=== PATIENT | female | born 1970 | race Caucasian/White ===

== ENCOUNTER 2016-12-28 00:38 | Emergency (ER) | payer BC, OTHER ==
[~2016-12-28] VITALS: Ht 154.9 cm; Wt 51.7 kg
[2016-12-28 00:42] VITALS: TEMP 36.7; Ht 154.9 cm; Wt 51.7 kg
[2016-12-28] MEDS ORDERED: XYLOCAINE 1%/SOD BICARB 20 ML VIAL INFIL ONE (00:48)
[2016-12-28] MEDS ORDERED: LIDOCAINE/EPINEPH/TETRACAINE 1 EA SYR ONE (00:57)
[2016-12-28] MEDS ORDERED: LIDOCAINE/EPINEPH/TETRACAINE 1 EA SYR EXT STA (01:05)
[2016-12-28] MEDS ORDERED: ACETAMINOPHEN 500 MG TAB PO STA (01:05)
--- NOTE | 2016-12-28 01:43 | EMERGENCY ROOM VISIT NOTE ---
History First contact with patient: 00:46 Chief Complaint: LACERATION/CUT (SUT/DERMABOND) Stated Complaint: CUT ABOVE R EYE Nursing Triage Summary: Patient ambulatory to triage, states "I tripped and fell, about 1.5 hours ago. I hit the right side of my head off of a wooden ironing board. I also hit my right great toe and ripped half of my toe nail off." Laceration about 1 1/4 inches in length noted to the right lateral eyebrow; bleeding controlled. No LOC with the head injury. History of Present Illness The patient is a 46 year old female who presents to the Emergency Room with complaints of right eyebrow laceration and right great toenail injury after she tripped off the step and fell into the ironing board just prior to arrival. Tetanus is current. Patient complains of a mild headache, 2 out of 10. Nothing makes it better or worse. Patient denies loss of conscious, facial pain , dental pain, neck pain, back pain, chest pain, dyspnea, abdominal pain, numbness, tingling or any other medical complaints. No alcohol or drug use tonight. Review of Systems See HPI for pertinent positives & negatives. A total of 10 systems reviewed and were otherwise negative. Past Medical/Surgical History None Social History Smoking Status: Never Smoker Smokeless Tobacco Use: No Alcohol Use: none Drug Use: none Marital Status: in relationship Housing Status: lives with significant other Current/Historical Medications No Active Prescriptions or Reported Meds Allergies Coded Allergies: Codeine (Verified Allergy, Intermediate, n/v, 12/28/16) Physical Exam Vital Signs Date Time Temp Pulse Resp B/P Pulse Ox O2 Delivery O2 Flow Rate FiO2 12/28/16 00:42 36.7 71 16 148/95 97 Room Air Physical Exam PHYSICAL EXAM: VITALS: Vitals are noted on the nurse's note and reviewed by myself. Vital signs stable. GENERAL: Pleasant female, in no acute distress, nondiaphoretic, well-developed well-nourished. SKIN: Right elbow with 3 cm laceration is gaping and appears clean with no deep structures visualized in the base of the wound The rest of the skin was without obvious lacerations or abrasions. Capillary reflex less than 2 seconds. HEAD: Normocephalic EARS: External auditory canals clear, tympanic membranes pearly terrazas without erythema or effusion bilaterally. No hemotympanums. No valerio sign. No mastoid tenderness. EYES: Pupils equal round and reactive to light and accommodation. Conjunctivae without injection, sclerae without icterus. Extraocular movements intact. NOSE: Patent, turbinates without inflammation or discharge. No sinus tenderness. No septal hematoma or bleeding. FACE: No facial bone tenderness. Full range of motion of the jaw without tenderness. Ethyl exam: No loose or chipped teeth MOUTH: Mucous membranes moist. Pharynx without erythema or exudate. Uvula midline. Airway patent. Tongue does not deviate. NECK: Supple without nuchal rigidity. Cervical spine is nontender. Full range of motion of the neck without tenderness. No JVD. HEART: Regular rate and rhythm without murmurs gallops or rubs. LUNGS: Clear to auscultation bilaterally without wheezes, rales or rhonchi. No dullness to percussion. No retractions or accessory muscle use. No chest wall tenderness. ABDOMEN: Positive bowel sounds x 4. Normal tympanic percussion. Soft, nontender, without masses or organomegaly. No guarding or rebound tenderness. MUSCULOSKELETAL: No tenderness of the thoracic or lumbar spine. Right great toe tender to palpation with part of the tail nail partially avulsed off to the distal aspect with bleeding controlled. Full range of motion without tenderness to palpation in all other extremities. Normal gait. Strength 5/5 throughout. Peripheral pulses 2+. NEURO: Patient was alert and oriented to person place and time. Normal sensation to light and sharp touch. Cerebellar function intact. No focal neurological deficits. Medical Decision & Procedures Medications Administered Medications (Trade) Dose Ordered Sig/[facility] Route Start Time Stop Time Status Last Admin Dose Admin Acetaminophen (Tylenol Tab) 1,000 mg NOW STAT PO 12/28/16 01:05 12/28/16 01:06 DC 12/28/16 01:20 1,000 MG Procedure Location: right eyebrow Total length: 3cm Complexity: simple Verbal consent was obtained after the risks and benefits were explained, including but not limited to bleeding, scarring, infection, pain, and bone/joint /nerve damage. At this time, the risks of the procedure are less than the risks of NOT performing the procedure. A time out was taken and the correct patient and site identified. The skin was prepped with betadine. The target area was anesthetized with LET. Copious irrigation was performed using NS. The skin was re-prepped with betadine and a sterile field set. The wound was explored for foreign bodies and none found. Examination revealed no injury to deep structures such as tendons, bone, or significant blood vessels. Debridement was not performed. The wound edges were approximated using 6, 6-0 simple interrupted nylon sutures. Hemostasis and excellent approximation was achieved. Antibacterial ointment and a sterile dressing applied. Detailed wound care instructions and signs and symptoms of infection reviewed with the pt. No complications and the patient tolerated the procedure well. ED Course Prior records/ancillary studies reviewed. Triage Nursing notes reviewed. Additional history obtained from family. The patient's history was concerning for traumatic head injury Differential diagnosis: Etiologies such as concussion, contusion, fracture, subdural hematoma, epidural hematoma, intraparenchymal hemorrhage, as well as other traumatic pathologies were entertained. Physical examination findings: As above. ER treatment provided: P.o. Tylenol Laceration repaired as above Wound care to partial nail avulsion to the right great toe by nursing On reassessment the patient felt better. Diagnostics interpreted by me: Imaging studies: To x-ray with no fracture, dislocation or effusion per my interpretation It appears the patient has a mild head injury with facial laceration and toenail injury. I discussed the risks and the benefits of CT scanning. Clinically the patient is doing well and does not appear to have a significant underlying injury. The pt felt comfortable with conservative observation with the understanding if the clinical picture change that imaging may be necessary at a later time. I gave my usual and customary discussion regarding this issue. Patient was counseled on laceration care and on nailbed and nail injury. She was advised to keep area dry and clean. She was advised to return to the ER immediately for headache, fevers, confusion, redness, drainage, worsening signs or symptoms or as needed. She is advised to follow-up family care in a few days. Tetanus is current per patient. By the evaluation outlined above emergent etiologies such as fracture, subdural hematoma, epidural hematoma, intraparenchymal hemorrhage, as well as others were deemed relatively unlikely. The pt informed about the findings as listed above. All questions were answered and pleased with the treatment. Return instructions were outlined and the patient was discharged in stable condition. Referral: The patient was referred back to their primary care physician for follow-up in 2 to 3 days for a recheck of the current condition. Medical Decision As above Impression Primary Impression: Head injury Additional Impressions: Facial laceration Avulsion of toenail of right foot Fall Departure Information Dispostion Home / Self-Care Condition GOOD Prescriptions No Active Prescriptions or Reported Meds Referrals Johnathan Membreno M.D. (PCP) Patient Instructions My [facility] Additional Instructions Keep wound clean and dry. Do not allow any crusting or dried blood to accumulate on sutures. If this occurs, use a 1:1 solution of hydrogen peroxide/ water on a Q-tip to clean the wound. Use an antibiotic ointment for 3-4 days, then let wound dry. Suture removal in 5-7 days. Return sooner for any signs of infection (increasing redness, swelling, drainage). Ice and elevate for swelling and pain. Keep covered when in sun until sutures removed then SPF 50 or higher for one year. Vitamin E oil if desired two weeks after suture removal for reduction of scar Read head injury handout and return for any symptoms. Tylenol 1000 mg as needed for pain (Maximum 3000 mg Tylenol in 24 hr period). Avoid alcohol and contact sports/activities for one week and follow up with family doctor prior to returning to these activities if still symptomatic. Ice and elevate head. If your symptoms persist more than a week then follow up with the concussion clinic. Call [phone]. Return to ER sooner for headache, fevers, confusion, worsening signs or symptoms or as needed. Antibiotic ointment and bandage to the areas until healed. Check your toenail frequently for signs and symptoms of infection. Follow up with family doctor or return for any signs of infection (increasing redness, swelling, drainage, or fever). Keep covered when in sun until fully healed then SPF 50 or higher until scar healed. Return to ER sooner for headache, fevers, confusion, signs of infection, worsening signs or symptoms or as needed. Problem Qualifiers Primary Impression: Head injury Encounter type: initial encounter Qualified Codes: S09.90XA - Unspecified injury of head, initial encounter Additional Impressions: Facial laceration Encounter type: initial encounter Qualified Codes: S01.81XA - Laceration without foreign body of other part of head, initial encounter Fall Encounter type: initial encounter Qualified Codes: W19.XXXA - Unspecified fall, initial encounter
[2016-12-28 01:46] VITALS: BP 133/86; PULSE 71; O2SAT 98
--- NOTE | 2016-12-28 08:21 | DIAGNOSTIC IMAGING REPORT ---
RIGHT FIRST TOE 3 VIEWS HISTORY: right great toe injury Right COMPARISON: None. FINDINGS: There is no fracture or dislocation. Mild soft tissue swelling within the distal toe. No radiopaque foreign bodies. IMPRESSION: No fractures. Electronically signed by: Sam Regalado M.D. 12/28/2016 8:20 AM Dictated Date/Time: 12/28/2016 8:19 AM
== END 2016-12-28 01:54 | disposition home or self-care (01) ==
LOC: C.EDB 00:39
DX: S09.90XA Unspecified injury of head, initial encounter (principal); S01.81XA Laceration without foreign body of other part of head, initial encounter; S91.201A Unspecified open wound of right great toe with damage to nail, initial encounter; W10.9XXA Fall (on) (from) unspecified stairs and steps, initial encounter; W22.09XA Striking against other stationary object, initial encounter

== ENCOUNTER 2017-01-03 15:18 | Emergency (ER) | payer BC ==
[~2017-01-03] VITALS: Ht 154.9 cm; Wt 51.7 kg
[2017-01-03 15:26] VITALS: PULSE 70; TEMP 36.8; O2SAT 99; Ht 154.9 cm; Wt 51.7 kg
--- NOTE | 2017-01-03 15:50 | EMERGENCY ROOM VISIT NOTE ---
ED Visit Note First contact with patient: 15:31 Chief complaint: Retained sutures right eyebrow. HPI: This 46-year-old white female presents to the ER for removal of retained sutures in the right eyebrow. The patient denies any fevers, chills, sweats, nausea, redness, streaking, purulent drainage, pain with palpation, or other signs of infection. They have been keeping the wound clean and protected as directed. Pain is rated as 0/10. Sutures have been in place for 6 days. No other complaints. Medical history, past surgical history, family history, social history, current medications, allergies, and tetanus status: All are unchanged from previous exam. Please see the chart from the initial wound repair visit. Physical exam Vitals: Afebrile. Reviewed and filed in patient's chart General: Well-developed, well-nourished, middle-aged white female, in no acute distress. She looks her stated age. Sitting on the bed, alert and oriented. No visible discomfort. Skin: Warm and dry with good turgor. No rashes or lesions. Sutures are in place in the right eyebrow. Wound edges are well approximated. No erythema, edema, ecchymosis, purulent drainage, or warmth. No significant discomfort with palpation. Area is nonfluctuant. Neurologic: Gross sensation is intact around the wound via soft touch. Capillary refill is intact and is equal to the surrounding tissue. Impression: Healing laceration right eyebrow Plan: Wound was cleansed with peroxide. Sutures were removed without event. Wound remained closed. No Steri-Strips were needed. Wound care precautions were reviewed. Watch for any signs of infection, or dehiscense. Return to the ER as needed. Tylenol as needed for any discomfort. Current/Historical Medications No Active Prescriptions or Reported Meds Allergies Coded Allergies: Codeine (Verified Allergy, Intermediate, n/v, 12/28/16) Vital Signs Date Time Temp Pulse Resp B/P (MAP) Pulse Ox O2 Delivery O2 Flow Rate FiO2 01/03/17 15:26 36.8 70 18 99 Room Air Departure Information Impression Primary Impression: Encounter for removal of sutures Dispostion Home / Self-Care Prescriptions No Active Prescriptions or Reported Meds Forms HOME CARE DOCUMENTATION FORM, TYLENOL USE, IMPORTANT VISIT INFORMATION Patient Instructions [facility] Additional Instructions Keep the area clean with soap and water Tylenol every 6 hours as needed for discomfort Apply sunblock to the area for the next 3-4 months to prevent darkening of the scar
== END 2017-01-03 15:45 | disposition home or self-care (01) ==
LOC: C.EDB 15:21 → C.EDD 15:45
DX: S01.111D Laceration without foreign body of right eyelid and periocular area, subsequent encounter (principal); X58.XXXD Exposure to other specified factors, subsequent encounter

== ENCOUNTER → 2017-04-09 | Outpatient (CLI) | payer BC ==
--- NOTE | 2017-04-09 12:34 | MAMMOGRAPHY REPORT ---
BILATERAL DIGITAL SCREENING MAMMOGRAM TOMOSYNTHESIS WITH CAD: 04/09/2017 TECHNIQUE: Breast tomosynthesis in addition to standard 2D mammography was performed. Current study was also evaluated with a Computer Aided Detection (CAD) system. COMPARISON: Comparison is made to exams dated: 04/03/2016 mammogram, 10/14/2015 mammogram, 10/14/2015 ul trasound biopsy, 04/10/2015 ultrasound, 03/29/2015 mammogram, and 10/09/2015 mammogram - [facility]. BREAST COMPOSITION: The tissue of both breasts is heterogeneously dense, which may obscure small mas ses. FINDINGS: No suspicious masses, calcifications, or areas of architectural distortion are noted in ei ther breast. There has been no significant interval change compared to prior exams. Small mass with associated biopsy marker clip in the left superior breast is stable compared to prior exams. IMPRESSION: ACR BI-RADS CATEGORY 2: BENIGN There is no mammographic evidence of malignancy. A 1 year screening mammogram is recommended. The pa tient will receive written notification of the results. Approximately 10% of breast cancers are not detected with mammography. A negative mammographic report should not delay biopsy if a clinically suggestive mass is present. Manda Mercedes M.D. ah/:04/09/2017 07:52:51 Clinical Informaticist: Dipika PEÑA(Josh)(M), [facility] letter sent: Normal 1/2 BI-RADS Code: ACR BI-RADS Category 2: Benign
== END | disposition home or self-care (01) ==
LOC: C.MAMM 07:37
PROVIDERS: ATTEND Family Medicine
DX: Z12.31 Encounter for screening mammogram for malignant neoplasm of breast (principal)

== ENCOUNTER → 2017-04-23 | Outpatient (CLI) | payer BC ==
[2017-04-23 13:00] LABS: BASO % 0.5 %; BASO ABS # 0.04 K/uL (0-0.2); COMPLETE YES; EOS % 1.6 %; HEMATOCRIT 42.2 % (37-47); IG% 0.1 %; LYMPH % 16.8 %; LYMPH ABS # 1.24 K/uL (1.2-3.4); MEAN CELL VOLUME 93.6 fL (80-100); MEAN CORPUSCULAR HEMOGLOBIN 32.2 pg (25-34); MEAN CORPUSCULAR HGB CONC 34.4 g/dl (32-36); MEAN PLATELET VOLUME 9.8 fL (7.4-10.4); MONO % 6.5 %; NEUT % 74.5 %; PLATELET COUNT 218 K/uL (130-400); RED BLOOD COUNT 4.51 M/uL (4.2-5.4); WHITE BLOOD COUNT 7.36 K/uL (4.8-10.8)
[2017-04-23 13:17] LABS: MANUAL MICROSCOPIC REQUIRED? NO; REVIEW REQ? NO; URINE APPEARANCE CLOUDY (CLEAR); URINE BILIRUBIN NEG (NEG); URINE COLOR YELLOW; URINE EPITHELIAL CELL AUTO >30 /lpf (0-5); URINE NITRITE NEG (NEG); UROBILINOGEN NEG (NEG); ZZUR CULT IF INDIC CLEAN CATCH YES
[2017-04-23 13:53] LABS: ALT/SGPT 14 U/L (12-78); AST/SGOT 17 U/L (15-37); BLOOD UREA NITROGEN 12 mg/dl (7-18); BUN/CREATININE RATIO 17.1 (10-20); CALCIUM 8.9 mg/dl (8.5-10.1); CARBON DIOXIDE 27 mmol/L (21-32); CHLORIDE 107 mmol/L (98-107); CREATININE 0.68 mg/dl (0.60-1.20); GLUCOSE 87 mg/dl (70-99); POTASSIUM 3.9 mmol/L (3.5-5.1); SODIUM 140 mmol/L (136-145)
== END | disposition home or self-care (01) ==
LOC: C.LABPVFM 09:54
PROVIDERS: ATTEND Family Medicine Adult Medicine
DX: R10.32 Left lower quadrant pain (principal)

== ENCOUNTER → 2017-06-30 | Outpatient (CLI) | payer BC | END | disposition home or self-care (01) | LOC: C.LABPVFM 11:59 | PROVIDERS: ATTEND Family Medicine Adult Medicine | DX: R30.0 Dysuria (principal); R31.29 Other microscopic hematuria ==

== ENCOUNTER → 2017-10-21 | Outpatient (CLI) | payer BC ==
[2017-10-21 17:18] LABS: BASO % 0.8 %; BASO ABS # 0.06 K/uL (0-0.2); EOS % 3.6 %; EOS ABS # 0.26 K/uL (0-0.5); HEMATOCRIT 43.8 % (37-47); HEMOGLOBIN 15.1 g/dL (12.0-16.0); IG# 0.01 K/uL (0.00-0.02); LYMPH % 27.6 %; LYMPH ABS # 2.01 K/uL (1.2-3.4); MEAN CELL VOLUME 92.8 fL (80-100); MEAN CORPUSCULAR HGB CONC 34.5 g/dl (32-36); MEAN PLATELET VOLUME 10.1 fL (7.4-10.4); MONO % 8.2 %; NEUT % 59.7 %; NEUT ABS # 4.34 K/uL (1.4-6.5); PLATELET COUNT 241 K/uL (130-400); RED CELL DISTRIBUTION WIDTH CV 12.8 % (11.5-14.5); WHITE BLOOD COUNT 7.28 K/uL (4.8-10.8)
[2017-10-21 17:30] LABS: ALBUMIN 4.3 gm/dl (3.4-5.0); ALT/SGPT 16 U/L (12-78); AST/SGOT 14 U/L (15-37); BLOOD UREA NITROGEN 16 mg/dl (7-18); CALCIUM 9.2 mg/dl (8.5-10.1); CARBON DIOXIDE 29 mmol/L (21-32); CREATININE 0.87 mg/dl (0.60-1.20); GLUCOSE 99 mg/dl (70-99); LIPASE 240 U/L (73-393); POTASSIUM 3.9 mmol/L (3.5-5.1); SODIUM 138 mmol/L (136-145)
[2017-10-21 17:33] LABS: ALKALINE PHOSPHATASE 56 U/L (45-117); TOTAL PROTEIN 7.6 gm/dl (6.4-8.2)
== END | disposition home or self-care (01) ==
LOC: C.LABPVFM 15:44
PROVIDERS: ATTEND Family Medicine
DX: R10.32 Left lower quadrant pain (principal)

== ENCOUNTER → 2017-10-27 | Outpatient (CLI) | payer BC ==
--- NOTE | 2017-10-27 11:35 | DIAGNOSTIC IMAGING REPORT ---
ULTRASOUND RIGHT UPPER QUADRANT ABDOMEN CLINICAL HISTORY: Generalized abdominal pain. COMPARISON STUDY: Abdominal CT dated 03/17/2016. TECHNIQUE: Real-time, grayscale, and color flow sonography of the right upper quadrant of the abdomen was performed. Images are reviewed in the transverse and longitudinal planes. FINDINGS: Liver: The liver is normal in size and echotexture. There is no intrahepatic biliary ductal dilatation. The main portal vein is patent. Gallbladder: A 2 mm gallbladder polyp is incidentally noted. No shadowing gallstones are seen. There is no gallbladder wall thickening or pericholecystic fluid. A sonographic Smith's sign is reportedly absent. The common bile duct measures up to 0.3 cm in diameter. Pancreas: Visualized portions of the pancreatic head and body are normal in appearance. Right kidney: Survey images of the right kidney demonstrate normal size and echotexture. There is no hydronephrosis. Ascites: None. Left lower quadrant: No sonographic abnormality is identified in the left abdomen at the indicated site of interest. IMPRESSION: 1. No acute sonographic abnormality is identified in the right upper quadrant. No gallstones are seen. 2. No sonographic abnormality is seen at the site of interest in the left abdomen. Electronically signed by: Carter Martel M.D. 10/27/2017 11:34 AM Dictated Date/Time: 10/27/2017 11:32 AM
== END | disposition home or self-care (01) ==
LOC: C.ULTRBC 10:38
PROVIDERS: ATTEND Family Medicine
DX: R10.32 Left lower quadrant pain (principal)

== ENCOUNTER → 2017-11-02 | Outpatient (CLI) | payer BC ==
[~2017-11-02] MED LIST: OPTIRAY 320 IV PRN
--- NOTE | 2017-11-02 07:37 | DIAGNOSTIC IMAGING REPORT ---
ABD/PELVIS IV CONTRAST ONLY CLINICAL HISTORY: 47 years-old Female presenting with R10.32 Abdominal pain, left lower quadrant. TECHNIQUE: Multidetector CT of the abdomen and pelvis was performed after the administration of intravenous contrast. IV contrast: 93 mL of Optiray 320. A dose lowering technique was used consistent with the principles of ALARA (as low as reasonably achievable). COMPARISON: 03/17/2016. CT DOSE (mGy.cm): The estimated cumulative dose is 263.51 mGy.cm. FINDINGS: [employer] topogram: Unremarkable. Lung bases: Lungs and pleural spaces clear. Normal heart size. No pericardial or pleural effusion. Liver: Normal morphology. No liver lesion. Patent hepatic vasculature. Biliary: No intrahepatic or extrahepatic biliary ductal dilatation. Normal gallbladder. Pancreas: Normal. Spleen: Normal. Adrenal glands: Normal. Kidneys and ureters: Subcentimeter hypodensity in the left kidney too small to characterize but likely simple cyst. No hydronephrosis. Punctate nonobstructing calculus noted at the upper pole the left kidney. Cortical atrophy at this site could suggest reflux nephropathy. No additional renal calculus. Ureters normal. Bladder: Normal. Pelvic organs: Uterus and ovaries normal. Dominant follicle noted in the left ovary. Prominent pelvic varices. Bowel: Normal appendix. No bowel obstruction. Peritoneal cavity: No free fluid or intraperitoneal gas. Lymph nodes: No enlarged lymph nodes in the abdomen or pelvis. Vasculature: Aorta and IVC patent and normal in caliber. The left gonadal vein is not significant by dilated, measuring 6 mm in diameter. Abdominal wall: Normal. Musculoskeletal: Normal. IMPRESSION: 1. No acute intra-abdominal pathology. 2. Dominant follicle noted in the left ovary. Few pelvic varices without significant gonadal vein dilatation. Electronically signed by: Deni Rosales M.D. 11/02/2017 7:36 AM Dictated Date/Time: 11/02/2017 7:30 AM
== END | disposition home or self-care (01) ==
LOC: C.CTS 07:00
PROVIDERS: ATTEND Family Medicine
DX: R10.32 Left lower quadrant pain (principal)